=== PATIENT | male | born 1940 | race Caucasian/White ===

== ENCOUNTER 2018-08-03 09:46 | Inpatient (IN) ==
--- NOTE | 2018-07-12 09:11 | PAT Medication Instructions ---
Medication Instructions Date of Service July 12, 2018 Home Medications atorvastatin 20 mg PO HS clonazepam [Klonopin] 0.5 mg PO UD PRN gabapentin 300 mg PO BID pantoprazole 40 mg PO QAM paroxetine HCl 20 mg PO QAM ranitidine HCl 300 mg PO HS trazodone 150 mg PO HS Continue as directed clonazepam [Klonopin] 0.5 mg PO UD PRN (if needed) Take morning of surgery With a small sip of water, OTHERWISE NOTHING TO EAT OR DRINK AFTER MIDNIGHT: gabapentin 300 mg PO BID pantoprazole 40 mg PO QAM paroxetine HCl 20 mg PO QAM Take evening before surgery atorvastatin 20 mg PO HS gabapentin 300 mg PO BID ranitidine HCl 300 mg PO HS trazodone 150 mg PO HS Other Notes If you have any questions please call us at [phone] or [phone] or [phone] or [phone]
--- NOTE | 2018-07-12 13:17 | Anesthesiology Consultation ---
Date of Service July 12, 2018 Assessment & Plan (1) Encounter for pre-operative examination: - Check BSG AM DOS (elevated on preop labs; Non-fasting glucose 213 on preop labs but hgba1c 6.1%; surgeon made aware/results reviewed by PCP). PCP= 07/22/18= "medically cleared.. low risk of cardiac complications with surgery." Chart Review Chart Review: Acceptable Risk for Surgery and Patient seen in Pre Admission Testing Teaching & Discussion Pre-Anesthesia Teaching/Discussion Notes: Instructed NPO after midnight before surgery,except medications with 15 cc of water. Medication instructions provided according to the PAT guidelines. History Surgery Operation Date: 08/03/18 12:10 Proposed Procedures p Right Reverse Total Shoulder Arthroplasty - Braxton Armstrong MD Height/Weight Height: 5 ft 10.5 in Weight: 89.2 kg Allergies Allergy/AdvReac Type Severity Reaction Status Date / Time Iodinated Contrast- Oral and Allergy Unknown hives Verified 07/06/18 14:06 IV Dye clams AdvReac Unknown SEVERE Verified 07/06/18 14:06 N/V/D Medications Home Medications Medication Instructions Recorded Confirmed Last Taken atorvastatin 20 mg PO HS 07/06/18 07/06/18 Unknown clonazepam [Klonopin] 0.5 mg PO UD PRN 07/06/18 07/06/18 Unknown gabapentin 300 mg PO BID 07/06/18 07/06/18 Unknown pantoprazole 40 mg PO QAM 07/06/18 07/06/18 Unknown paroxetine HCl 20 mg PO QAM 07/06/18 07/06/18 Unknown ranitidine HCl 300 mg PO HS 07/06/18 07/06/18 Unknown trazodone 150 mg PO HS 07/06/18 07/06/18 Unknown Past Medical History Medical History Anxiety Chronic back pain Claustrophobia Deep vein thrombosis RLE (2014) POST-OP, RLE (2016) SPONTANEOUS S/P ANTICOAGULATION X 6 MONTHS (SINCE DISCONTINUED) Degenerative disc disease Depression GERD (gastroesophageal reflux disease) CONTROLLED History of skin cancer S/P MOH'S PROCEDURE Hyperlipidemia Kidney stones Osteoarthritis Spinal stenosis Past Family History Family History Uncle Family hx of colon cancer X 2 Past Surgical History Surgical History History of Mohs micrographic surgery for skin cancer History of ankle joint replacement RIGHT History of appendectomy History of back surgery LUMBAR History of bursectomy RIGHT ELBOW History of colonoscopy History of cystoscopy History of esophagogastroduodenoscopy (EGD) History of hernia repair RIGHT INGUINAL X2, LEFT X1 History of knee replacement B/L History of repair of rotator cuff B/L History of tooth extraction History of vasectomy Past Anesthesia History No Hx of Anesthesia Complications and No Family Hx of Anesthesia Complications History of PONV No Motion Sickness Screening History of Motion Sickness: No Social History Smoking Status: Former smoker Do You Dip or Chew Tobacco: No (QUIT 10 YEARS AGO) Smoking End Date: HX <1/4 PPD X 5 YEARS; QUIT 40 YEARS AGO Hx Alcohol Use: Yes Alcohol type: beer alcohol intake frequency: 0-2 drinks per day Hx Substance Use: No substance use type: does not use Exercise / Class Metabolic Activity II 4-5 Yardwork/Stairs/Walk up hill Review of Systems Patient reports LBP. Right shoulder pain with RUE radiculopathy. Patient denies chest pain, shortness of breath, dyspnea on exertion, cough, wheezing, palpitations. Physical Exam Vital Signs VITALS BP 131/67 P 58 TEMP 97.6 SP02 97%RA RESP 20 PHYSICAL Full neck and c-spine range of motion. Full TMJ range of motion. TMD 2.5 finger breaths Mallampati Score 3 Dentition: full upper dentures; partial lower dentures Lungs: clear throughout to auscultation Cardiac: regular rate and rhythm, no murmurs noted Spine: normal Carotid arteries: negative bruit Extremities: no edema Testing Electrocardiogram Date: 10/17/17 Findings: + NSR @ (70) Chest X-Ray Date: 07/12/18 Findings: + NAD Mild compression deformity of the superior endplate T12 felt to be old. Stress Test Date: 06/03/15 Type: DSE DSE "normal" without evidence of inducible ischemia. LVEF 55-60%. Grade I DD. Aortic root borderline enlarged. Mild AV sclerosis. Mild MR. Mild TR. 104% MPHR. Laboratory Results 07/12/18 13:23 07/12/18 13:23 Blood Type A Positive 07/12/18 13:23 Antibody Screen NEGATIVE 07/12/18 13:23 PT 10.3 Seconds (9.0-12.0) 07/12/18 13:23 INR 1.0 (0.9-1.1) 07/12/18 13:23 APTT 28.5 Seconds (21.0-31.0) 07/12/18 13:23 Hemoglobin A1c 6.1 % (4.5-5.6) H 07/12/18 13:23 Urine Color Yellow 07/12/18 13:23 Urine Appearance Clear (Clear) 07/12/18 13:23 Urine pH 5.5 (4.5-7.5) 07/12/18 13:23 Ur Specific [place] 1.013 (1.000-1.030) 07/12/18 13:23 Urine Protein Negative (Negative) 07/12/18 13:23 Urine Glucose (UA) Trace (Negative) H 07/12/18 13:23 Urine Ketones Negative (Negative) 07/12/18 13:23 Urine Nitrite Negative (Negative) 07/12/18 13:23 Ur Leukocyte Esterase Negative (Negative) 07/12/18 13:23 Non-fasting glucose 213 on preop labs --> hgba1c 6.1%; surgeon made aware/results forwarded to PCP.
[2018-07-12 14:29] LABS: Basophils # (auto) 0.01 K/uL (0-0.2); Basophils % (auto) 0.2 %; Eosinophils # (auto) 0.02 K/uL (0-0.5); Eosinophils % (auto) 0.4 %; Hematocrit (blood only) 40.5 % (42-52); Hemoglobin 13.8 g/dL (14.0-18.0); Lymphocytes # (auto) 1.37 K/uL (1.2-3.4); Lymphocytes % (auto) 28.1 %; Mean Corpuscular Hgb Conc 34.1 g/dL (32-36); Mean Corpuscular Volume 92.5 fL (80-100); Mean Platelet Volume 9.8 fL (7.4-10.4); Monocytes # (auto) 0.27 K/uL (0.11-0.59); Monocytes % (auto) 5.5 %; Neutrophils # (auto) 3.21 K/uL (1.4-6.5); Neutrophils % (auto) 65.8 %; Platelet Count 159 K/uL (130-400); RDW Coefficient of Variation 12.4 % (11.5-14.5); RDW Standard Deviation 41.9 fL (36.4-46.3); Red Blood Count 4.38 M/uL (4.7-6.1); White Blood Count 4.88 K/uL (4.8-10.8)
--- NOTE | 2018-07-12 14:32 | XRay Report ---
XR chest Pre-admission PA/Lat CLINICAL HISTORY: pat preoperative evaluation COMPARISON STUDY: No previous studies for comparison. FINDINGS: The bones soft tissues and hemidiaphragms are normal. The cardiomediastinal silhouette is n ormal. The lungs are clear. The pulmonary vasculature is normal. Mild compression deformity of the heart perior endplate T12 felt to be old. IMPRESSION: No acute process. The above report was generated using voice recognition software. It may contain grammatical, syntax or spelling errors. Electronically signed by: Mahesh Alan M.D. 07/12/2018 2:31 PM
[2018-07-12 14:34] LABS: Appearance Urine Clear (Clear); Bilirubin Urine Negative (Negative); Blood Urine Negative (Negative); Color Urine Yellow; Glucose Urine UA Trace (Negative); Ketones Urine Negative (Negative); Leukocyte Esterase Urine Negative (Negative); Nitrite Urine Negative (Negative); Protein Urine Negative (Negative); Specific Gravity Urine 1.013 (1.000-1.030); Urobilinogen Urine Negative (Negative); pH Urine 5.5 (4.5-7.5)
[2018-07-12 14:43] LABS: Estimated Average Glucose 128 mg/dl; Hemoglobin A1C 6.1 % (4.5-5.6)
[2018-07-12 14:44] LABS: Partial Thromboplastin Ratio 1.1; Partial Thromboplastin Time 28.5 Seconds (21.0-31.0); Prothrombin Time 10.3 Seconds (9.0-12.0)
[2018-07-12 15:04] LABS: Albumin Level 3.7 gm/dl (3.4-5.0); Calcium 8.4 mg/dl (8.5-10.1); Creatinine Clr Calc Pharmacy 84.2 ml/min; Est GFR (African American) 98.3; Est GFR (Non-African American) 84.8
--- NOTE | 2018-08-02 15:46 | History and Physical Report ---
DATE OF ADMISSION: 08/03/2018 CHIEF COMPLAINT: Chronic right shoulder pain. HISTORY OF PRESENT ILLNESS: This is a 77-year-old male patient of Dr. Armstrong'oral complaining of chronic right shoulder pain and rotator cuff arthropathy. The patient has failed conservative treatment and has elected to proceed with a right reversed total shoulder arthroplasty. PAST MEDICAL HISTORY: History of blood clot in his right leg and groin, spine problems, neck problems, upper back problems, sciatica, acid reflux, hiatal hernia, skin cancer and he has dentures. SOCIAL HISTORY: Nonsmoker, occasional drinker. PAST SURGICAL HISTORY: Right ankle replacement, both knee replacements, both shoulder surgeries, low back surgery, 3 hernia surgeries, appendectomy and removal of skin cancer from his back. REVIEW OF SYSTEMS: The patient complains of chronic right shoulder pain and weakness. Otherwise, denies any shortness of breath, chest pain, nausea, vomiting or any other joint complaints. FAMILY HISTORY: Noncontributory. MEDICATIONS: Atorvastatin 20 mg daily, clonazepam 1 tablet 3 times daily, gabapentin 300 mg 3 times daily, ketaconazole 2% shampoo twice weekly, pantoprazole 40 mg daily, paroxetine 20 mg daily, ranitidine 300 mg at bedtime, trazodone 150 mg at bedtime. ALLERGIES: IODINE. PHYSICAL EXAMINATION: GENERAL: Well-developed, well-nourished 77-year-old male in no acute distress. He is alert and oriented x3 and pleasant. HEENT: Normocephalic, atraumatic. Extraocular motions are intact. Pupils equal and reactive to light. HEART: Regular rate and rhythm, no murmurs. LUNGS: Clear. ABDOMEN: Soft, nontender, bowel sounds present. EXTREMITIES: Right shoulder reveals full active range of motion with crepitation and pain. Neurologically and neurovascularly, he is intact in his right upper extremity. External rotation strength is 3/5, internal is 4+/5. DIAGNOSES: Right shoulder rotator cuff arthropathy, history of deep venous thrombosis in the right lower leg and groin, spine problems, neck problems, upper back problems, sciatica, acid reflux, hiatal hernia, dentures and history of skin cancer. PLAN: The patient was advised of his diagnosis. Indications, risks, benefits, postop course have all been reviewed. The patient wished to proceed with a right reversed total shoulder arthroplasty. Necessary consent forms, preoperative testing and clearances will be obtained.
[~2018-08-03 09:46] MED LIST: ACETAMINOPHEN 500 MG TAB PO SCH; CEFAZOLIN 2000MG 2,000 MG/15 ML SYR IV SCH; CeleBREX 200 MG CAP PO SCH; DEXAMETHASONE SOD INJ 4 MG/ML VIAL ONE; FAMOTIDINE 20 MG TAB PO SCH; GABAPENTIN 300 MG PO SCH; LR 15ML/HR IV SCH; METOCLOPRAMIDE HCL 10 MG TABLET PO SCH; ROPIVACAINE 0.5% 5 MG/ML 30 ML VIAL ONE; dexAMETHasone 4 MG TAB PO SCH
[2018-08-03] MEDS ORDERED: MIDAZOLAM HCL 1 MG/ML 2ML VIAL ONE ×2 (10:12)
[2018-08-03] MEDS ORDERED: PROPOFOL IV EMULSION 10 MG/ML 20 ML VIAL IV ONE ×2 (10:12→13:50)
[2018-08-03] MEDS ORDERED: ROCURONIUM BROMIDE 10 MG/ML 5 ML VIAL ONE ×6 (10:12→14:52)
[2018-08-03] MEDS ORDERED: fentaNYL citrate 100 MCG/2 ML VIAL ONE (10:12)
[2018-08-03] MEDS ORDERED: ONDANSETRON INJ 2 MG/ML 2 ML VIAL ONE (10:13)
[2018-08-03] MEDS ORDERED: DEXAMETHASONE SOD INJ 4 MG/ML VIAL ONE (10:13)
--- NOTE | 2018-08-03 10:17 | History & Physical Bridge Note ---
Date of Service August 03, 2018 History & Physical Bridge Note I have examined the patient, reviewed the History & Physical and in the interval since the performance of the History & Physical I have noted the following changes of clinical significance: no changes noted
[2018-08-03] MEDS ORDERED: BACITRACIN INJ 50,000 UNIT VIAL ONE (10:55)
[2018-08-03] MEDS ORDERED: POVIDONE-IODINE OP SOLN 30 ML BTL ONE (10:55)
[2018-08-03] MEDS ORDERED: ePHEDrine sulfate 50 MG/ML AMP IV PRN (11:51)
[2018-08-03] MEDS ORDERED: ATROPINE SULFATE 0.1 MG/ML 10ML SYR IV PRN (11:51)
[2018-08-03] MEDS ORDERED: ePHEDrine sulfate 50 MG/ML SYR ONE ×2 (13:18→14:24)
[2018-08-03] MEDS ORDERED: NEOSTIGMINE METHYLSULFATE 5 MG/5 ML SYR ONE (14:53)
[2018-08-03] MEDS ORDERED: GLYCOPYRROLATE 0.2 MG/ML VIAL ONE (14:53)
--- NOTE | 2018-08-03 15:17 | Post Operative Brief Note ---
Immediate Post Op Note v1 Date of Surgery August 03, 2018 Pre & Post Diagnosis Operation Date: 08/03/18 12:30 Pre-Op Diagnosis: Right Shoulder Rotator Cuff Arthropathy, history of open rotator cuff repair failed rotator cuff repair irreparable rotator cuff tear Post-Op Diagnosis: Same, chronic retracted biceps tendon proximal rupture Procedure Operation Date: 08/03/18 12:30 Actual Procedures p Right Reverse Total Shoulder Arthroplasty(Right) - Braxton Armstrong MD Surgeon Braxton Armstrong MD Nurse Ldr [employer] BUSTILLO Estimated Blood Loss 175 Findings Consistent with Post-Op Diagnosis Specimens Humeral head Drains Hussein Catheter and Hemovac Drain Anesthesia Type General Regional Complications none Disposition Accompanied Patient To Recovery: No Disposition: Recovery Room Overlapping Procedure I was immediately available: during the entire case.
--- NOTE | 2018-08-03 15:57 | XRay Report ---
XR shoulder RT min 2V routine CLINICAL HISTORY: 77 years-old Male presenting with Post shoulder surgery. TECHNIQUE: Frontal and transcatheter Y views of the right shoulder were obtained. COMPARISON: Chest x-ray from 07/12/2018. FINDINGS: There has been interval reverse total right shoulder arthroplasty. Surgical drains and skin moi i n place. No periprosthetic fracture or malalignment. Acromioclavicular joint congruent. Mildly low red ng volumes noted. IMPRESSION: Expected postsurgical appearance status post reverse total right shoulder arthroplasty. Electronically signed by: Darius Dominguez M.D. 08/03/2018 3:55 PM
--- NOTE | 2018-08-03 16:07 | Anesthesiology Progress Note ---
Date of Service August 03, 2018 Anesthesia Post Procedure Vital Signs Vital Signs: Temp Pulse Resp BP Pulse Ox 08/03/18 15:33 36.3 C L 97 H 16 134/66 97 08/03/18 10:26 36.4 C L 56 L 17 128/72 98 Pain Intensity Right Shoulder: Pain Intensity: 0 Notes Mental Status: alert / awake / arousable Patient Amnestic to Procedure: Yes Nausea / Vomiting: adequately controlled Pain: adequately controlled Airway Patency, RR, SpO2: stable & adequate BP & HR: stable & adequate Hydration State: stable & adequate Anesthetic Complications: no major complications apparent and Pt Satisfied with anesthetic care
[2018-08-03] MEDS ORDERED: HYDROmorphone INJ 0.5 MG/0.5 ML SYR IV PRN (16:42)
[2018-08-03] MEDS ORDERED: BISACODYL 10 MG SUPP PR PRN (16:42)
[2018-08-03] MEDS ORDERED: ONDANSETRON INJ 2 MG/ML 2 ML VIAL IV PRN (16:42)
[2018-08-03] MEDS ORDERED: NALOXONE HCL 0.4 MG/1 ML VIAL/CARP IV PRN (16:42)
[2018-08-03] MEDS ORDERED: clonazePAM 0.5 MG TAB PO PRN (16:42)
[2018-08-03] MEDS ORDERED: MAGNESIUM HYDROXIDE SUSP 30 ML UDC PO PRN (16:42)
--- NOTE | 2018-08-03 17:35 | Consultation ---
Date of Consultation August 03, 2018 Assessment & Plan (1) Shoulder pain: s/p R reverse total shoulder As per ortho Pre-op Hb 13.8 (2) Depression: continue home meds (3) Anxiety: continue home meds (4) Neck pain: Gabapentin as at home (5) Hyperlipidemia: continue home meds (6) DVT prophylaxis: As per ortho Hx of DVT x2, once s/p OR and once s/p mild trauma Advised pt to ambulate frequently despite decreased overall activity while recovering from shoulder surgery History of Present Illness Attending Physician: Braxton Armstrong MD History of Present Illness 77 y/o M who was admitted on 08/03 s/p R revere total shoulder with Dr. Armstrong. Pt is doing well post-op. Tolerating water without issue but has not had an other PO yet. Pt denies fever, SOB, chest pain, abd pain, n/v/c/d, LE pain or swelling. Pt states he has hx of DVT x2. First was 2015 s/p R ankle repair. He completed a course of anticoagulation. Second was 2017 after a ladder fell on his R LE. He finished another course of anticoagulation for this. States he was tested for genetic blood clotting disorders and this was negative. Allergies Allergy/AdvReac Type Severity Reaction Status Date / Time Iodinated Contrast- Oral and Allergy Unknown hives Verified 08/03/18 10:21 IV Dye clams AdvReac Unknown SEVERE Verified 08/03/18 10:21 N/V/D Home Medications Home Medications Medication Instructions Recorded Confirmed Type atorvastatin 20 mg PO HS 07/06/18 08/03/18 History clonazepam [Klonopin] 0.5 mg PO UD PRN 07/06/18 08/03/18 History gabapentin 300 mg PO BID 07/06/18 08/03/18 History pantoprazole 40 mg PO QAM 07/06/18 08/03/18 History paroxetine HCl 20 mg PO QAM 07/06/18 08/03/18 History ranitidine HCl 300 mg PO HS 07/06/18 08/03/18 History trazodone 150 mg PO HS 07/06/18 08/03/18 History Patient History Medical History Anxiety Chronic back pain Claustrophobia Deep vein thrombosis RLE (2015) POST-OP, RLE (2017) SPONTANEOUS S/P ANTICOAGULATION X 6 MONTHS (SINCE DISCONTINUED) Degenerative disc disease Depression GERD (gastroesophageal reflux disease) CONTROLLED History of skin cancer S/P MOH'S PROCEDURE Hyperlipidemia Kidney stones Osteoarthritis Spinal stenosis Surgical History History of Mohs micrographic surgery for skin cancer History of ankle joint replacement RIGHT History of appendectomy History of back surgery LUMBAR History of bursectomy RIGHT ELBOW History of colonoscopy History of cystoscopy History of esophagogastroduodenoscopy (EGD) History of hernia repair RIGHT INGUINAL X2, LEFT X1 History of knee replacement B/L History of repair of rotator cuff B/L History of tooth extraction History of vasectomy Social History Preferred Language: American Communication Ability: Effective Storage And Backup Administrator Required: No Beliefs That Will Affect Care: None Current Living Situation: Spouse Other Information That Helps Us Care for You: No Feels Safe at Home: Yes Safety Concerns: Feels Safe At This Time Smoking Status: Former smoker Hx Alcohol Use: Yes (1-2 drinks several days a week, none for over a week) Hx Substance Use: No Review of Systems Pertinent positives and negatives reviewed in HPI--all others negative Physical Exam Vital Signs (Past 24 Hours): Last Vital Signs Temp 36.5 C 08/03/18 17:01 Pulse 80 08/03/18 17:01 Resp 18 08/03/18 17:01 BP 117/70 08/03/18 17:01 Pulse Ox 95 08/03/18 17:01 Constitutional: WD/WN, vitals as above Eyes: normal visual [place] by confrontation and + anicteric sclerae Neck: normal visual inspection and trachea midline Respiratory: normal respiratory effort, lungs clear to auscultation Cardiovascular: Rate/Rhythm: regular rate and regular rhythm Gastrointestinal (Abdomen): Inspection/Auscultation: abdomen not distended Percussion/Palpation: abdomen soft; abdomen nontender Musculoskeletal: Head/Neck/Chest: normocephalic and head atraumatic negative for edema, peripheral pulses intact Skin: no rashes, warm and dry Neurologic: awake; not confused Speech / Cognition: normal speech Psychiatric: A+Ox3, euthymic affect Results & Data Diagnostic Findings CXR: neg for acute
[2018-08-03] MEDS: SODIUM CHLORIDE 0.9% 1000ML 1,000 ML IV SCH (17:40)
--- NOTE | 2018-08-03 18:41 | Operative Report ---
Post Operative Report Pre & Post Diagnosis Operation Date: 08/03/18 12:30 Pre-Op Diagnosis: Right Shoulder Rotator Cuff Arthropathy, history of open rotator cuff repair, failed rotator cuff repair, irreparable rotator cuff tear Post-Op Diagnosis: Same, chronic retracted biceps tendon tear Procedure Operation Date: 08/03/18 12:30 Actual Procedures p Right Reverse Total Shoulder Arthroplasty(Right) - Braxton Armstrong MD Surgeon Braxton Armstrong MD Registration Specialist [employer] BUSTILLO Estimated Blood Loss 175 Findings Consistent with Post-Op Diagnosis Specimens Humeral head Drains 2 Hemovac Anesthesia Type General Regional Complications none Disposition Accompanied Patient To Recovery: No Disposition: Recovery Room Indications 77-year-old male with a chronic pain weakness right shoulder pseudo-paralytic arm. Patient is proximal migration of the humerus [id number] between the humerus and the acromion with rotator cuff arthropathy. Description of Procedure The patient was taken to the operating room and anesthetized under regional block and general anesthetic. The patient was positioned on the operating table in a 40 beach chair position with a towel roll under the medial border of the right scapula. The arm was draped free to be able to manipulate the shoulder as needed. The right upper extremity was prepped and draped in usual sterile fashion. Exam demonstrated good passive range of motion with 90 degrees of external and internal rotation and forward elevation to 160 degrees. A longitudinal scar lateral deltoid noted. An anterior deltopectoral approach was performed. A longitudinal incision was made in the deltopectoral interval. The skin was incised sharply. Subcutaneous flaps were elevated off the fascia. The cephalic vein was dissected out and retracted lateral with the deltoid. The clavipectoral fascia was divided at the lateral margin of the conjoined tendon and extended up to the CA ligament. The following findings were noted: Patient had only one third of the lower subscapularis and capsule still intact and the upper subscapularis was torn and retracted. All the tendons of the rotator cuff were torn and retracted aside from the teres minor which was still intact. There are large osteophytes about the humeral head and significant arthritic changes. There was thick chronic bursal tissue overlying the intact rotator cuff tissue. Long head of the biceps was torn and retracted not identified. The upper centimeter of the pectoralis was released for inferior exposure. The intact portion of the subscapularis tendon was taken down off the lesser tuberosity using a subperiosteal peel dissection. A #1 Vicryl traction suture was placed into the free end of the subscapularis tendon and capsule. The circumflex vessels were identified and tied off with silk ties and divided laterally. The subscapularis tendon was then taken down off of the lesser tuberosity subperiosteally and subperiosteal dissection was performed along the neck of the humerus as the arm is gradually actually rotated exposing the humeral head. Retractors were readjusted and the inferior osteophytes were all resected using an artist chisel. A Richards elevator was used to assist in releasing the capsule of the neck of the humerus. A Fukuda retractor was placed into the joint retracting the humeral head posterior. Glenoid findings demonstrated grade 3 wear and a large posterior superior osteophyte attached to the posterior capsule. The labrum was resected. an anterior-inferior and posterior inferior capsular release were performed with electrocautery and a Richards elevator on bone. Attention was then taken to the humeral preparation. The cutting guide was placed into the humeral head. It was positioned at 20 of retroversion. Oscillating saw was used to resect the humeral head giving the cut above the level of the posterior rotator cuff insertion site. The large humeral osteophytes were resected with a rongeur. The humerus was then prepared for the stem. I used the ascend flex stem from [facility]. The sizing broaches were used followed by trial broaches up to a size 7 which had the appropriate fit and fill. The appropriate sized cut protector was placed. The humerus was then retracted posterior to the glenoid. The glenoid was sized for a 42 glenoid sphere. The guide for the baseplate was positioned in a 10 inferior tilt and the central drill hole was made. The reamer for the 29 baseplate was used. The central drill was widened for the peg. The 29 baseplate was impacted into po sition. The base plate was transfixed with superior and inferior locking screws and anterior and posterior compression screws with stable fixation. The fan reamer was used for the 42 millimeter glenoid sphere. After irrigation the 42 glenoid sphere was impacted onto the baseplate and the screw was tightened. Attention was taken back to the humerus. The cut protector was removed and the +0 high offset humeral tray trial was assembled to the trial stem rotated appropriately to get bony coverage and then screwed in position. A trial reduction was performed. A +6 trial insert demonstrated good stability and no shuck. The trials were removed. 2 drill holes are made into the harder bone in the lower bicipital groove area and to #5 FiberWire sutures were placed transosseously. The canal was irrigated with antibiotic solution with bacitracin. The final component was assembled. The final component was 7B long 120 mm ascend flex humeral stem +0 high offset humeral tray 42+6 polyethylene insert. This was then impacted into the humerus with a tight press-fit. It was reduced to the glenoid sphere. Stability was verified. Subscapularis was repaired with the #5 FiberWire sutures using Mando-Adonay suture technique. Lateral row soft tissue repair was performed with #2 FiberWire [id number] sutures. The pectoralis was repaired with #2 FiberWire [id number] sutures. The arm was taken through a range of motion which demonstrated 160 degrees forward elevation 100 degrees of abduction 70 degrees external rotation. The implant was stable through the range of motion tested. The wound was copiously irrigated. 2 Hemovac drains were placed. The deltopectoral interval was closed with [id number] #1 Vicryl sutures. The subcutaneous tissues were closed with 2-0 Vicryl sutures. The skin was closed with moi. Sterile dressings were applied and a shoulder immobilizer. [employer] BUSTILLO my physician ice cream freezer assistant assisted in the procedure to the entire procedure including patient positioning arm positioning prepping and draping soft tissue retraction instrument management suture management and performed the subcutaneous and skin closure and will participate in the postoperative care of the patient. I attest to the content of the Intraoperative Record and any orders documented therein. Any exceptions are noted below.
[2018-08-03] MEDS: DOCUSATE SODIUM 100 MG CAP PO SCH (20:09)
[2018-08-03] MEDS: ASPIRIN 81 MG ECTAB PO SCH (20:09)
[2018-08-03] MEDS: GABAPENTIN 300 MG CAP PO SCH (20:10)
[2018-08-03] MEDS: ATORVASTATIN 20 MG TAB PO SCH (20:10)
[2018-08-03] MEDS: SENNA 8.6 MG TAB PO SCH (20:10)
[2018-08-03] MEDS: CEFAZOLIN 2000MG 2,000 MG/15 ML SYR IV SCH (22:45)
[2018-08-03] MEDS: TRAZODONE HCL 50 MG TAB PO SCH (22:45)
[2018-08-03] MEDS: ACETAMINOPHEN 500 MG TAB PO SCH (22:45)
[2018-08-04] MEDS ORDERED: COUGH DROP (SUGAR FREE) LOZ 24 LOZ/1 BOX BUCCAL PRN (00:30)
[2018-08-04] MEDS: SODIUM CHLORIDE 0.9% 1000ML 1,000 ML IV SCH (05:18)
[2018-08-04] MEDS: ACETAMINOPHEN 500 MG TAB PO SCH ×3 (05:19→21:35)
[2018-08-04] MEDS: CEFAZOLIN 2000MG 2,000 MG/15 ML SYR IV SCH (05:19)
[2018-08-04 06:18] LABS: Hemoglobin 11.6 g/dL (14.0-18.0); Immature Granulocytes # (auto) 0.02 K/uL (0.00-0.02); Immature Granulocytes % (auto) 0.2 %; Lymphocytes # (auto) 0.79 K/uL (1.2-3.4); Lymphocytes % (auto) 9.1 %; Mean Corpuscular Hgb Conc 34.1 g/dL (32-36); Mean Corpuscular Volume 91.4 fL (80-100); Mean Platelet Volume 9.5 fL (7.4-10.4); Monocytes % (auto) 6.9 %; Neutrophils # (auto) 7.23 K/uL (1.4-6.5); Neutrophils % (auto) 83.8 %; Platelet Count 158 K/uL (130-400); RDW Coefficient of Variation 12.7 % (11.5-14.5); RDW Standard Deviation 42.4 fL (36.4-46.3); Red Blood Count 3.72 M/uL (4.7-6.1); White Blood Count 8.64 K/uL (4.8-10.8)
[2018-08-04 06:54] LABS: BUN Creatinine Ratio 12.5 (10-20); Calcium 7.8 mg/dl (8.5-10.1); Creatinine Clr Calc Pharmacy 74.9 ml/min; Est GFR (African American) 97.4; Potassium 3.6 mmol/L (3.5-5.1)
--- NOTE | 2018-08-04 08:38 | Anesthesiology Progress Note ---
Date of Service August 04, 2018 Anesthesia Post Procedure Vital Signs Vital Signs: Temp Pulse Pulse Pulse Resp BP BP 08/04/18 07:00 36.5 C 66 18 113/66 08/04/18 02:57 36.4 C L 66 16 105/60 08/03/18 23:11 36.5 C 68 16 111/66 08/03/18 21:38 08/03/18 19:30 36.5 C 103 H 18 148/71 H 08/03/18 18:36 36.5 C 96 H 18 112/65 08/03/18 17:33 36.5 C 74 18 119/71 08/03/18 17:01 36.5 C 80 18 117/70 08/03/18 16:30 36.6 C 79 18 117/61 08/03/18 16:15 75 16 123/69 08/03/18 16:11 78 17 129/70 08/03/18 16:10 36.5 C 76 74 16 129/70 08/03/18 16:05 77 16 107/76 08/03/18 16:00 77 77 17 120/80 120/80 08/03/18 15:55 79 20 134/73 08/03/18 15:51 85 21 137/67 08/03/18 15:50 85 85 22 137/67 08/03/18 15:46 86 18 143/64 H 08/03/18 15:45 88 28 H 08/03/18 15:41 93 H 17 125/74 08/03/18 15:40 92 H 93 H 18 125/74 08/03/18 15:36 97 H 14 122/70 08/03/18 15:35 97 H 24 08/03/18 15:34 99 H 17 134/66 08/03/18 15:33 36.3 C L 97 H 97 H 21 134/66 08/03/18 10:26 36.4 C L 56 L 17 128/72 Pulse Ox 08/04/18 07:00 94 08/04/18 02:57 94 08/03/18 23:11 95 08/03/18 21:38 95 08/03/18 19:30 98 08/03/18 18:36 99 08/03/18 17:33 98 08/03/18 17:01 95 08/03/18 16:30 97 08/03/18 16:15 97 08/03/18 16:11 97 08/03/18 16:10 97 08/03/18 16:05 97 08/03/18 16:00 96 08/03/18 15:55 99 08/03/18 15:51 98 08/03/18 15:50 97 08/03/18 15:46 99 08/03/18 15:45 99 08/03/18 15:41 99 08/03/18 15:40 100 08/03/18 15:36 98 08/03/18 15:35 98 08/03/18 15:34 98 08/03/18 15:33 96 08/03/18 10:26 98 Pain Intensity Right Shoulder: Pain Intensity: 0 Notes Mental Status: alert / awake / arousable and participated in evaluation Patient Amnestic to Procedure: Yes Nausea / Vomiting: adequately controlled Pain: adequately controlled Airway Patency, RR, SpO2: stable & adequate BP & HR: stable & adequate Hydration State: stable & adequate Anesthetic Complications: no major complications apparent and Pt Satisfied with anesthetic care
[2018-08-04] MEDS: OXYCODONE HCL IR 5 MG TAB (IMMEDIATE RELEASE) PO PRN ×3 (08:49→21:38)
[2018-08-04] MEDS: PANTOprazole 40 MG TAB PO SCH (08:49)
[2018-08-04] MEDS: MULTIVITAMIN TAB PO SCH (08:49)
[2018-08-04] MEDS: PARoxetine HCl 20 MG TAB PO SCH (08:50)
[2018-08-04] MEDS: GABAPENTIN 300 MG CAP PO SCH ×2 (08:50→21:32)
[2018-08-04] MEDS: DOCUSATE SODIUM 100 MG CAP PO SCH ×2 (08:50→21:33)
[2018-08-04] MEDS: ASPIRIN 81 MG ECTAB PO SCH ×2 (08:50→21:33)
--- NOTE | 2018-08-04 10:11 | Orthopedic Progress Note ---
Date of Service August 04, 2018 Assessment & Plan (1) Shoulder pain: POD #1, Right reversed TSA PT/ OT D/C planning- Home As per medicine. Subjective POD #1, Doing well, denies sob, cp, n/v, pain controlled well. Physical Exam Vital Signs (Past 24 Hours): Last Vital Signs Temp 36.5 C 08/04/18 07:00 Pulse 66 08/04/18 07:00 Resp 18 08/04/18 07:00 BP 113/66 08/04/18 07:00 Pulse Ox 94 08/04/18 07:00 Physical Exam: Right shoulder dressings c/d/i, no drainage, sling/ drain in tact, fingers mobile, A&Ox3.
[2018-08-04] MEDS: SENNA 8.6 MG TAB PO SCH (21:33)
[2018-08-04] MEDS: TRAZODONE HCL 50 MG TAB PO SCH (21:34)
[2018-08-04] MEDS: ATORVASTATIN 20 MG TAB PO SCH (21:35)
[2018-08-05] MEDS: ACETAMINOPHEN 500 MG TAB PO SCH (05:40)
--- NOTE | 2018-08-05 08:00 | Orthopedic Progress Note ---
Date of Service August 05, 2018 Assessment & Plan (1) Shoulder pain: POD #2, Right reversed TSA PT/ OT D/C planning- Home today w HEP As per medicine. Subjective POD #2, Doing well, denies sob, cp, n/v, pain controlled well. Physical Exam Vital Signs (Past 24 Hours): Last Vital Signs Temp 36.7 C 08/05/18 07:00 Pulse 74 08/05/18 07:00 Resp 18 08/05/18 07:00 BP 116/69 08/05/18 07:00 Pulse Ox 96 08/05/18 07:00 Physical Exam: Right shoulder dressings c/d/i, no drainage, fingers mobile, sling in tact. A&Ox3
[2018-08-05] MEDS: MULTIVITAMIN TAB PO SCH (08:39)
[2018-08-05] MEDS: PANTOprazole 40 MG TAB PO SCH (08:39)
[2018-08-05] MEDS: GABAPENTIN 300 MG CAP PO SCH (08:39)
[2018-08-05] MEDS: DOCUSATE SODIUM 100 MG CAP PO SCH (08:40)
[2018-08-05] MEDS: PARoxetine HCl 20 MG TAB PO SCH (08:40)
[2018-08-05] MEDS: ASPIRIN 81 MG ECTAB PO SCH (09:15)
--- NOTE | 2018-08-09 03:09 | Discharge Summary ---
DISCHARGE DIAGNOSES: Right shoulder rotator cuff arthropathy with history of open rotator cuff repair, failed rotator cuff repair, irreparable cuff repair. SECONDARY DIAGNOSES: History of deep venous thrombosis in the right lower extremity in the past, degenerative spine disease, sciatica, gastroesophageal reflux disease, skin carcinoma. CONSULTATIONS: Yanna Mariano MD COMPLICATIONS: None. PROCEDURES: Right reverse total shoulder arthroplasty by Dr. Armstrong on 08/03/2018. BRIEF HISTORY: As dictated in the history and physical. HOSPITAL SUMMARY: The patient was admitted on the above-noted date and had the above-noted surgery performed, which he tolerated well. On the first postoperative day, he was doing well and had no complaints. Pain was controlled. Vital signs were stable and the patient was afebrile. Dressings were clean, dry, and intact. No drainage. Sling was intact. Fingers were mobile. The patient was started on PT and OT protocols and was continued on pain management. By his second postoperative day, he continued to progress well, had no complaints. Pain was controlled. Vital signs were stable. He was afebrile. Dressings were intact. Fingers were mobile. Sling was intact. It was felt he could be discharged to home on 08/05/2018. For further review, please see chart. LABORATORY AND X-RAY DATA: As per chart. DISCHARGE INSTRUCTIONS: The patient was discharged home in satisfactory condition on 08/05/2018. DIET: Regular. ACTIVITY: The patient to be nonweightbearing on the affected upper extremity. Follow reverse total shoulder arthroplasty instructions and special care instructions as noted. Follow up with Dr. Armstrong in 2 weeks. The patient to call for appointment if one has not been made for you. DISCHARGE MEDICATIONS: Acetaminophen 1000 mg p.o. q. 8 hours, aspirin 81 mg p.o. b.i.d., oxycodone 5 mg p.o. q. 6 hours. Resume home meds as listed.
== END 2018-08-05 10:47 | disposition home or self-care (01) | DRG 483 ==
LOC: ASU 09:46 → 3E 15:47

== ENCOUNTER 2018-12-12 10:03 | Inpatient (IN) ==
[2018-11-21 13:48] LABS: Basophils # (auto) 0.01 K/uL (0-0.2); Basophils % (auto) 0.2 %; Eosinophils # (auto) 0.02 K/uL (0-0.5); Eosinophils % (auto) 0.4 %; Hematocrit (blood only) 38.9 % (42-52); Hemoglobin 13.1 g/dL (14.0-18.0); Immature Granulocytes # (auto) 0.01 K/uL (0.00-0.02); Immature Granulocytes % (auto) 0.2 %; Lymphocytes # (auto) 1.42 K/uL (1.2-3.4); Lymphocytes % (auto) 28.2 %; Mean Corpuscular Hgb Conc 33.7 g/dL (32-36); Mean Corpuscular Volume 92.4 fL (80-100); Mean Platelet Volume 9.3 fL (7.4-10.4); Monocytes # (auto) 0.38 K/uL (0.11-0.59); Monocytes % (auto) 7.5 %; Neutrophils % (auto) 63.5 %; Platelet Count 175 K/uL (130-400); RDW Coefficient of Variation 13.1 % (11.5-14.5); RDW Standard Deviation 43.8 fL (36.4-46.3); Red Blood Count 4.21 M/uL (4.7-6.1); White Blood Count 5.04 K/uL (4.8-10.8)
[2018-11-21 13:50] LABS: Appearance Urine Clear (Clear); Bilirubin Urine Negative (Negative); Blood Urine Negative (Negative); Color Urine Yellow; Glucose Urine UA Negative (Negative); Ketones Urine Negative (Negative); Leukocyte Esterase Urine Negative (Negative); Nitrite Urine Negative (Negative); Protein Urine Negative (Negative); Specific Gravity Urine 1.022 (1.000-1.030); Urobilinogen Urine Negative (Negative)
[2018-11-21 14:04] LABS: Estimated Average Glucose 131 mg/dl; Hemoglobin A1C 6.2 % (4.5-5.6)
[2018-11-21 14:06] LABS: Prothrombin Time 10.3 Seconds (9.0-12.0)
[2018-11-21 14:28] LABS: Albumin Level 3.4 gm/dl (3.4-5.0); BUN Creatinine Ratio 18.1 (10-20); Blood Urea Nitrogen 17 mg/dl (7-18); C Reactive Protein < 0.29 mg/dl (0-0.29); Calcium 8.5 mg/dl (8.5-10.1); Carbon Dioxide 30 mmol/L (21-32); Chloride 105 mmol/L (98-107); Est GFR (African American) 89.8; Est GFR (Non-African American) 77.4; Glucose 76 mg/dl (70-99); Potassium 4.2 mmol/L (3.5-5.1); Sodium 139 mmol/L (136-145)
[2018-11-21 14:29] LABS: Phosphorus 2.9 mg/dl (2.5-4.9)
--- NOTE | 2018-12-06 09:53 | Anesthesiology Consultation ---
Date of Service December 06, 2018 Assessment & Plan (1) Encounter for pre-operative examination: Chart Review Chart Review: Acceptable Risk for Surgery and Patient NOT seen in Pre Admission Testing History Surgery Operation Date: 12/12/18 10:20 Proposed Procedures p Right Shoulder Poly Exchange, Possible Humeral Tray Exchange, S/P Reversed Shoulder Arthroplasty - Braxton Armstrong MD Height/Weight Height: 5 ft 10.5 in Weight: 83.915 kg Allergies Allergy/AdvReac Type Severity Reaction Status Date / Time Iodinated Contrast- Oral and Allergy Unknown hives Verified 11/10/18 08:16 IV Dye clams AdvReac Unknown SEVERE Verified 11/10/18 08:16 N/V/D Medications Home Medications Medication Instructions Recorded Confirmed Last Taken atorvastatin 20 mg PO HS 07/06/18 11/10/18 08/02/18 22:00 clonazepam [Klonopin] 0.5 mg PO UD PRN 07/06/18 11/10/18 Unknown pantoprazole 40 mg PO QAM 07/06/18 11/10/18 08/03/18 07:00 paroxetine HCl 20 mg PO QAM 07/06/18 11/10/18 08/03/18 07:00 trazodone 150 mg PO HS 07/06/18 11/10/18 08/02/18 22:00 multivitamin 1 tab PO DAILY 11/10/18 11/10/18 Unknown ranitidine HCl 150 mg PO HS 11/10/18 11/10/18 Unknown Past Medical History Medical History Anxiety Chronic back pain Claustrophobia Deep vein thrombosis RLE (2014) POST-OP, RLE (2016) SPONTANEOUS S/P ANTICOAGULATION X 6 MONTHS (SINCE DISCONTINUED) Degenerative disc disease Depression GERD (gastroesophageal reflux disease) CONTROLLED History of skin cancer S/P MOH'S PROCEDURE Hyperlipidemia Kidney stones Osteoarthritis Spinal stenosis Past Family History Family History Uncle Family hx of colon cancer X 2 Father Coronary heart disease [place] Brother Coronary heart disease [place] Family/Other Clotting disorder nephew with genetic clotting disorder Past Surgical History Surgical History History of Mohs micrographic surgery for skin cancer History of ankle joint replacement RIGHT History of appendectomy History of back surgery LUMBAR History of bursectomy RIGHT ELBOW History of colonoscopy History of cystoscopy History of esophagogastroduodenoscopy (EGD) History of hernia repair RIGHT INGUINAL X2, LEFT X1 History of knee replacement B/L History of repair of rotator cuff B/L History of tooth extraction History of total shoulder replacement Right reverse total shoulder arthroplasty: 08/03/18: Grade 2 view with cricoid pressure to improve view, MAC#3, ETT 8.0 ("easy, atraumatic, poor neck e xtension") History of vasectomy Social History Smoking Status: Former smoker tobacco type: cigarettes Do You Dip or Chew Tobacco: No (QUIT 2008) Smoking End Date: QUIT 1978 Hx Alcohol Use: Yes Alcohol type: beer alcohol intake frequency: a few times a week Hx Substance Use: No substance use type: does not use Testing Laboratory Results 11/21/18 12:44 11/21/18 12:44 PT 10.3 Seconds (9.0-12.0) 11/21/18 12:44 INR 1.0 (0.9-1.1) 11/21/18 12:44 Hemoglobin A1c 6.2 % (4.5-5.6) H 11/21/18 12:44 Urine Color Yellow 11/21/18 12:44 Urine Appearance Clear (Clear) 11/21/18 12:44 Urine pH 7.0 (4.5-7.5) 11/21/18 12:44 Ur Specific [place] 1.022 (1.000-1.030) 11/21/18 12:44 Urine Protein Negative (Negative) 11/21/18 12:44 Urine Glucose (UA) Negative (Negative) 11/21/18 12:44 Urine Ketones Negative (Negative) 11/21/18 12:44 Urine Nitrite Negative (Negative) 11/21/18 12:44 Ur Leukocyte Esterase Negative (Negative) 11/21/18 12:44 Blood Type A Positive 11/21/18 12:44 Antibody Screen NEGATIVE 11/21/18 12:44 Electrocardiogram Date: 12/01/18 Findings: + SB @ (56) Chest X-Ray Date: 07/12/18 Findings: + NAD Mild compression deformity of the superior endplate T12 felt to be old. Stress Test Date: 06/03/15 Type: DSE DSE "normal" without evidence of inducible ischemia. LVEF 55-60%. Grade I DD. Aortic root borderline enlarged. Mild AV sclerosis. Mild MR. Mild TR. 104% MPHR.
--- NOTE | 2018-12-10 16:47 | History and Physical Report ---
DATE OF ADMISSION: 12/12/2018 CHIEF COMPLAINT: Chronic right shoulder pain. HISTORY OF PRESENT ILLNESS: This is a 78-year-old male patient of Dr. Armstrong'oral complaining of chronic and continued right shoulder pain status post a reverse total shoulder arthroplasty in 07/2018. The patient describes subluxation and instability along with pain which continues 4 months postoperatively. The patient has been diagnosed with unstable reverse total shoulder arthroplasty and wishes to proceed with a right shoulder poly exchange, possible humeral tray exchange status post reverse total shoulder arthroplasty. PAST MEDICAL HISTORY: Hypercholesterolemia, anxiety, peripheral neuropathy, history of blood clots, osteoarthritis, spine problems, neck problems, upper back problems, sciatica, acid reflux, hiatal hernia, kidney stones, melanoma cancer. SOCIAL HISTORY: Nonsmoker, nondrinker. PAST SURGICAL HISTORY: Shoulder replacement, ankle replacement, bilateral knee replacement, hernia surgery and appendectomy. FAMILY HISTORY: Noncontributory. REVIEW OF SYSTEMS: Chronic right shoulder pain status post reverse total shoulder arthroplasty in 07/2018. Otherwise, denies any shortness of breath, chest pain, nausea, vomiting or any other joint complaints. MEDICATIONS: 1. Zocor 20 mg daily. 2. Protonix 40 mg daily. 3. Tramadol 50 mg every 6 hours as needed. 4. Paroxetine 20 mg daily. 5. Ranitidine 300 mg daily. 6. Klonopin 1 mg daily. 7. Trazodone 150 mg daily. ALLERGIES: IODINE WHICH CAUSES HIVES. PHYSICAL EXAMINATION: GENERAL: Well-developed, well-nourished 78-year-old male in no acute distress. He is alert and oriented x3 and pleasant. HEENT: Normocephalic, atraumatic. Extraocular motions are intact. Pupils are equal and reactive to light. HEART: Regular rate and rhythm, no murmurs appreciated. LUNGS: Clear. ABDOMEN: Soft, nontender, bowel sounds present. EXTREMITIES: Right shoulder, he is currently not dislocated at this point in time. His range of motion of 0-170 with pain. He has had some isometric strength again with pain. Neurologically and neurovascularly he is intact in his right upper extremity. DIAGNOSES: Right shoulder chronic instability and subluxation status post reverse total shoulder arthroplasty. He has a history of hypercholesterolemia, anxiety, peripheral neuropathy, blood clot, osteoarthritis, spine problems, neck problems, upper back problems, sciatica, acid reflux, hiatal hernia, kidney stones and melanoma cancer. PLAN: The patient was advised of his diagnosis. Indications, risks, benefits, postop course have all been reviewed. The patient wished to proceed with a right reversed total shoulder arthroplasty revision poly exchange, possible humeral tray exchange. Necessary consent forms, preoperative testing and clearances will be obtained.
[~2018-12-12 10:03] MED LIST changes: -DEXAMETHASONE SOD INJ 4 MG/ML VIAL ONE; +GABAPENTIN 300 MG CAP PO SCH; -GABAPENTIN 300 MG PO SCH; +VANCOMYCIN HCL 1,250 MG in SODIUM CHLORIDE 0.9% 250 ML IV SCH
[2018-12-12] MEDS ORDERED: MIDAZOLAM HCL 1 MG/ML 2ML VIAL ONE (10:46)
[2018-12-12] MEDS ORDERED: fentaNYL citrate 100 MCG/2 ML VIAL ONE ×2 (10:46→14:12)
--- NOTE | 2018-12-12 10:51 | History & Physical Bridge Note ---
Date of Service December 12, 2018 History & Physical Bridge Note I have examined the patient, reviewed the History & Physical and in the interval since the performance of the History & Physical I have noted the following changes of clinical significance: no changes noted
[2018-12-12] MEDS ORDERED: BACITRACIN INJ 50,000 UNIT VIAL ONE ×2 (11:02→15:11)
[2018-12-12] MEDS ORDERED: ONDANSETRON INJ 2 MG/ML 2 ML VIAL IV PRN ×2 (11:51→17:00)
[2018-12-12] MEDS ORDERED: ATROPINE SULFATE 0.1 MG/ML 10ML SYR IV PRN (11:51)
[2018-12-12] MEDS ORDERED: ePHEDrine sulfate 50 MG/ML AMP IV PRN (11:51)
[2018-12-12] MEDS ORDERED: fentaNYL citrate 100 MCG/2 ML VIAL IV PRN (11:51)
--- NOTE | 2018-12-12 15:39 | Post Operative Brief Note ---
Immediate Post Op Note v1 Date of Surgery December 12, 2018 Pre & Post Diagnosis Operation Date: 12/12/18 12:50 Pre-Op Diagnosis: instability S/P Reversed Shoulder Arthroplasty Post-Op Diagnosis: instability S/P Reversed Shoulder Arthroplasty, attenuation subscapularis repair Procedure Operation Date: 12/12/18 12:50 Actual Procedures p Right Shoulder Poly Exchange, Humeral Tray Exchange(Right) - Braxton Armstrong MD Surgeon Braxton Armstrong MD [employer] [place] Estimated Blood Loss 75 Findings Consistent with Post-Op Diagnosis Drains Hemovac Drain Anesthesia Type General Regional Complications none Disposition Accompanied Patient To Recovery: No Disposition: Recovery Room Overlapping Procedure I was immediately available: during the entire case.
[2018-12-12] MEDS ORDERED: LIDOCAINE HCL 2% 2 ML VIAL/AMP(20MG/ML) INFIL ONE (16:06)
[2018-12-12] MEDS ORDERED: SUCCINYLCHOLINE CHLORIDE 20 MG/ML 10 ML VIAL ONE (16:06)
[2018-12-12] MEDS ORDERED: ONDANSETRON INJ 2 MG/ML 2 ML VIAL ONE (16:06)
[2018-12-12] MEDS ORDERED: PHENYLEPHRINE HCL 10 MG/ML VIAL ONE (16:06)
[2018-12-12] MEDS ORDERED: NEOSTIGMINE METHYLSULFATE 5 MG/5 ML SYR ONE (16:06)
[2018-12-12] MEDS ORDERED: ROCURONIUM BROMIDE 10 MG/ML 5 ML VIAL ONE (16:06)
[2018-12-12] MEDS ORDERED: ePHEDrine sulfate 50 MG/ML AMP ONE (16:06)
[2018-12-12] MEDS ORDERED: PROPOFOL IV EMULSION 10 MG/ML 20 ML VIAL IV ONE (16:06)
[2018-12-12] MEDS ORDERED: GLYCOPYRROLATE 0.2 MG/ML VIAL ONE (16:06)
[2018-12-12] MEDS ORDERED: DEXAMETHASONE SOD INJ 4 MG/ML VIAL ONE (16:06)
--- NOTE | 2018-12-12 16:37 | Anesthesiology Progress Note ---
Date of Service December 12, 2018 Anesthesia Post Procedure Vital Signs Vital Signs: Temp Pulse Pulse Resp BP Pulse Ox 12/12/18 16:30 74 18 131/76 95 12/12/18 16:20 77 22 128/66 95 12/12/18 16:10 80 17 122/65 98 12/12/18 16:01 36.2 C L 86 16 134/60 95 12/12/18 10:43 36.5 C 73 20 134/68 95 Pain Intensity Right Shoulder: Pain Intensity: 0 Transfer of Care Handoff Completed per policy Notes Mental Status: alert / awake / arousable and participated in evaluation Patient Amnestic to Procedure: Yes Nausea / Vomiting: adequately controlled Pain: adequately controlled Airway Patency, RR, SpO2: stable & adequate BP & HR: stable & adequate Hydration State: stable & adequate Anesthetic Complications: no major complications apparent and Pt Satisfied with anesthetic care
--- NOTE | 2018-12-12 16:38 | XRay Report ---
XR shoulder RT min 2V routine CLINICAL HISTORY: Post shoulder surgery shoulder arthroplasty COMPARISON: 08/03/2018 DISCUSSION: Anatomic alignment posttotal right shoulder arthroplasty. Good contact between prosthetic and underlying bone. Expected soft tissue postoperative change IMPRESSION: Anatomic alignment posttotal right shoulder arthroplasty. The above report was generated using voice recognition software. It may contain grammatical, syntax or spelling errors. Electronically signed by: Mahesh Alan M.D. 12/12/2018 4:37 PM
[2018-12-12] MEDS ORDERED: SODIUM CHLORIDE 0.9% 1000ML 1,000 ML IV SCH (17:00)
[2018-12-12] MEDS ORDERED: clonazePAM 0.5 MG TAB PO PRN (17:00)
[2018-12-12] MEDS ORDERED: MAGNESIUM HYDROXIDE SUSP 30 ML UDC PO PRN (17:00)
[2018-12-12] MEDS ORDERED: BISACODYL 10 MG SUPP PR PRN (17:00)
[2018-12-12] MEDS ORDERED: NALOXONE HCL 0.4 MG/1 ML VIAL/CARP IV PRN (17:00)
[2018-12-12] MEDS ORDERED: HYDROmorphone INJ 0.5 MG/0.5 ML SYR IV PRN (17:00)
--- NOTE | 2018-12-12 17:59 | Hospitalist Consultation ---
Date of Consultation December 12, 2018 Assessment & Plan (1) H/O total shoulder replacement: - POD#0 right shoulder poly exchange and humeral tray exchange (had right TSA 07/2018) - activity and wound care orders as per ortho - pain control with bowel regimen - PT/OT - monitor H/H for acute blood loss anemia and transfuse blood products PRN - EBL 75 cc (2) Hyperlipidemia: -Continue statin (3) GERD (gastroesophageal reflux disease): -Continue PPI and H2 mary (4) Anxiety: -Continue paroxetine (5) DVT prophylaxis: -Aspirin 81 mg daily and TEDs/SCDs as per orthopedics Thank you for this consultation. We will follow the patient with you during their hospital stay. You can reach a [facility] via pager @ [phone]. Supervising Physician Co-Signing Physician Notes I have seen and examined the patient and have discussed the case with the provider above. I agree with the assessment and plan as stated. Hemodynamically stable. Benign exam. Cont current treatment plan. Appreciate the consult. DO Kole History of Present Illness Reason for Consultation: Postop medical management Requesting Physician: Dr. Armstrong Attending Physician: Dr. Sharif History of Present Illness 78-year-old male who is status post right shoulder poly exchange and humeral tray exchange. Patient underwent a right total shoulder arthroplasty 07/2018 and has had continued and persistent pain and therefore presented for the planned procedure today. Probably, the patient is doing well. Reports pain is well controlled. No numbness or tingling to the right upper extremity. He denies chest pain shortness of breath. No lightheadedness or dizziness. He denies abdominal pain or nausea. He has not voided since surgery. Allergies Allergy/AdvReac Type Severity Reaction Status Date / Time Iodinated Contrast- Oral and Allergy Intermediate hives Verified 12/12/18 11:13 IV Dye clams AdvReac Severe SEVERE Verified 12/12/18 11:13 N/V/D Home Medications Home Medications Medication Instructions Recorded Confirmed Type atorvastatin 20 mg PO HS 07/06/18 12/12/18 History clonazepam [Klonopin] 0.5 mg PO UD PRN 07/06/18 12/12/18 History pantoprazole 40 mg PO QAM 07/06/18 12/12/18 History paroxetine HCl 20 mg PO QAM 07/06/18 12/12/18 History trazodone 150 mg PO HS 07/06/18 12/12/18 History multivitamin 1 tab PO DAILY 11/10/18 12/12/18 History ranitidine HCl 150 mg PO HS 11/10/18 12/12/18 History acetaminophen [Tylenol Extra 1,000 mg PO Q8 30 Days #180 tab 12/13/18 Rx Strength] aspirin [Ecotrin Low Strength] 81 mg PO QAM 30 Days #30 tab 12/13/18 Rx oxycodone 5 mg PO Q4H PRN #30 tab 12/13/18 Rx Patient History Medical History Skin cancer (melanoma) (Chronic) History of DVT (deep vein thrombosis) (Chronic) GERD (gastroesophageal reflux disease) (Chronic) Hyperlipidemia (Chronic) Anxiety (Chronic) Surgical History H/O total shoulder replacement (Chronic) Right History of appendectomy (Chronic) H/O hernia repair (Chronic) x 2 History of total left knee replacement (Chronic) History of total right knee replacement (Chronic) S/P ankle joint replacement (Chronic) History of Mohs micrographic surgery for skin cancer Family History Uncle Family hx of colon cancer X 2 Father Coronary heart disease [place] Brother Coronary heart disease [place] Family/Other Clotting disorder nephew with genetic clotting disorder Social History Preferred Language: Upper Sorbian Communication Ability: Effective Director Of Adult Epilepsy Required: No Beliefs That Will Affect Care: None marital status: Current Living Situation: Spouse Feels Safe at Home: Yes Smoking Status: Former smoker Tobacco Type: cigarettes ; Second Hand Exposure: No ; Hx Alcohol Use: Yes Alcohol type: beer Hx Substance Use: No Review of Systems Review of Systems: ROS per HPI, all other systems reviewed and negative Physical Exam Constitutional: WD/WN, vitals as above Eyes: PERRL, conjunctivae normal, anicteric sclerae ENMT: external ear and nose normal, oropharynx normal Respiratory: normal respiratory effort, lungs clear to auscultation Cardiovascular: Rate/Rhythm: regular rate and regular rhythm Vessels: normal peripheral pulses Extremities: no edema Gastrointestinal (Abdomen): normal bowel sounds, soft, nontender, no hepatosplenomegaly Musculoskeletal: S/P right shoulder surgery, surgical dressing dry and intact, drain in place draining bloody drainage, CSM checks intact right upper extremity Skin: no rashes, warm and dry Neurologic: PERRL, EOMI, accommodation nl, no face palsy, no dysarthria Psychiatric: A+Ox3, euthymic affect Results & Data Vital Signs (Past 12 Hours) Vital Signs Temp Pulse Pulse Resp BP Pulse Ox 12/12/18 17:00 36.6 C 80 18 124/69 97 12/12/18 16:45 73 12 131/68 94 12/12/18 16:40 36.6 C 73 12 121/71 96 12/12/18 16:30 74 18 131/76 95 12/12/18 16:20 77 22 128/66 95 12/12/18 16:10 80 17 122/65 98 12/12/18 16:01 36.2 C L 86 16 134/60 95 12/12/18 10:43 36.5 C 73 20 134/68 95
--- NOTE | 2018-12-12 20:45 | Operative Report ---
DATE OF OPERATION: 12/12/2018 INDICATION FOR PROCEDURE: The patient is a 78-year-old male who is status post a recent right reverse total shoulder replacement on 08/03/2018. He developed some postoperative instability where he felt the shoulder was popping out of place. He had to shift his arm to replace it in position. He never had a true dislocation that had to be reduced and more of subluxations. He had some improvement over time with therapy but continues to have some feeling of instability in the shoulder. Radiographs demonstrate a well-aligned reverse total shoulder replacement of his right shoulder. PREOPERATIVE DIAGNOSIS: Instability status post reverse total shoulder arthroplasty. POSTOPERATIVE DIAGNOSES: Instability status post reverse total shoulder arthroplasty including attenuation of subscapularis repair. PROCEDURE: Right shoulder polyethylene exchange and humeral tray exchange for instability, right reverse total shoulder replacement. SURGEON: Braxton Armstrong MD PRODUCTION BORING MACHINE OPERATOR: KENY Holden. ANESTHESIA: General with regional block. ESTIMATED BLOOD LOSS: 75 mL. DRAINS: Hemovac. COMPLICATIONS: None. DISPOSITION: Recovery room. OVERLAPPING PROCEDURE: None. OPERATIVE PROCEDURE: The patient was taken to the operating room, anesthetized under general anesthetic with muscle relaxation. Shoulder exam demonstrated he did have some shuck in his shoulder about 5 mm. Only certain positions could this be reproduced. Shoulder was stable otherwise to exam and I could not create any dislocation. His right shoulder was benign. No signs of infection, no swelling, benign healed scar. He had good range of motion, 150 degrees of forward elevation, 90 degrees of abduction, external rotation to 45-50 degrees. His right shoulder was then positioned on the operating room table in a 30 degree beachchair position with towel roll under the medial border of right scapula. He was translated to the right side bed, so his shoulder could be manipulated off the bed as necessary. His lower extremities well padded. SCDs were placed. His head was placed on a foam headrest and protective eyewear. Head was secured with tape and then his right shoulder was sterilely prepped and draped in usual sterile fashion. His previous anterior deltopectoral scar was used. Skin was incised sharply. Subcutaneous flaps were elevated and the patient's cephalic vein was still intact. This was dissected out and retracted laterally with the deltoid. Pectoralis was retracted medially. The clavipectoral fascia was identified and scarred down, typical postop findings. The conjoined tendon was identified, retracted medially and then the thin subscapularis tendon tissue was identified. There was a thin tissue in the rotator interval more just synovial tissue and the subscapularis tendon itself was attenuated and stretched out. The sutures were still intact and the repaired portion of the subscapularis was still intact to the lesser tuberosity area of the anterior humerus, although the tissue then had clearly tendinopathy. There was still infraspinatus intact, supraspinatus chronically torn. The rotator interval was opened up and then carried down as L-type incision through the bicipital groove down along the anterior humerus. A subperiosteal peel release performed to expose the humerus. We just released the upper aspect of the closure, the upper subscapularis and along the inferior neck of the humerus, left to clearly expose the entire baseplate and polyethylene. The humerus was dislocated with traction and lateral translation of the prosthetic and was able to dislocate it fairly easily. The polyethylene was removed with polyethylene removal device. The joint had some clear joint fluid, but no signs of any purulence at the site of infection and complete benign appearance to it. There was a thin membrane underneath the polyethylene which was cleaned out of the baseplate. We did the baseplate paced previously at 6 o'clock position so that was in the maximum best rotated position for stability and then tried a 9 mm poly. There was still some small amount of shuck. I felt we could improve stability better by going thicker, so this required doing and exchange of the metallic baseplate component. The baseplate was removed with a tuning fork device easily and the Phelps taper was this large. The stem was clearly stable and intact with good bone ingrowth. The humeral glenoid sphere was clearly stable and intact. No false motion. The small membrane over the humeral component was removed and we copiously irrigated out the glenohumeral joint with 3 liters of antibiotic solution with bacitracin. Then, we did a baseplate trial with a +6 mm high offset tray baseplate and then went ahead with a 9 x 42 reversed polyethylene insert and this gave no shuck through full range of motion and patient had good stable range of motion of shoulder and I felt the soft tissue tension on the deltoid and conjoined tendon was better. The trials were removed. Then, the humerus was prepared for the final component with further irrigation and drying of the Phelps taper of the stem completely and then impacting the +6 high offset tray with the high offset superior and then the 42 x 9 reversed polyethylene insert for Tornier Ascend Flex stem was placed in position and impacted with a good fit. We reduced the prosthetic to the glenoid sphere and verified stability, full range of motion and no shuck in any plane. Then after further irrigation, we went ahead and repaired the thin attenuated subscapularis tendon tissue with transosseous #5 FiberWire sutures using Mando-Adonay suture technique. This gave a little additional support, but tissue was poor and we could not depend on the tissue plane stability. After further irrigation, the 2 Hemovac drains were placed. Then the deltopectoral interval was closed with [id number] #1 Vicryl sutures and then subcutaneous tissue was closed with interrupted 2-0 Vicryl sutures. Skin was closed with moi. Sterile dressings were applied and the patient tolerated the procedure well. KENY Holden was my first helper. He functioned as first helper for the entire procedure. He assisted in soft tissue retraction, assisted in arm positioning, instrument management and assisted in the subcutaneous skin closure and will participate in postoperative care of the patient. I attest to the content of the Intraoperative Record and any orders documented therein. Any exceptions are noted below. TULIO
[2018-12-12] MEDS ORDERED: ATORVASTATIN 20 MG TAB PO SCH (21:00)
[2018-12-12] MEDS ORDERED: SENNA 8.6 MG TAB PO SCH (21:00)
[2018-12-12] MEDS ORDERED: TRAZODONE HCL 50 MG TAB PO SCH (21:00)
[2018-12-12] MEDS: DOCUSATE SODIUM 100 MG CAP PO SCH (21:53)
[2018-12-12] MEDS: CEFAZOLIN 2000MG 2,000 MG/15 ML SYR IV SCH (21:53)
[2018-12-12] MEDS: ACETAMINOPHEN 500 MG TAB PO SCH (21:53)
[2018-12-13] MEDS: ACETAMINOPHEN 500 MG TAB PO SCH ×2 (05:36→13:57)
[2018-12-13] MEDS: CEFAZOLIN 2000MG 2,000 MG/15 ML SYR IV SCH (05:36)
[2018-12-13 05:56] LABS: Hematocrit (blood only) 35.3 % (42-52); Immature Granulocytes # (auto) 0.01 K/uL (0.00-0.02); Immature Granulocytes % (auto) 0.2 %; Lymphocytes # (auto) 0.99 K/uL (1.2-3.4); Lymphocytes % (auto) 15.4 %; Mean Corpuscular Volume 88.9 fL (80-100); Mean Platelet Volume 8.9 fL (7.4-10.4); Monocytes # (auto) 0.38 K/uL (0.11-0.59); Monocytes % (auto) 5.9 %; Neutrophils # (auto) 5.03 K/uL (1.4-6.5); Neutrophils % (auto) 78.5 %; Platelet Count 162 K/uL (130-400); RDW Coefficient of Variation 13.3 % (11.5-14.5); RDW Standard Deviation 42.7 fL (36.4-46.3); Red Blood Count 3.97 M/uL (4.7-6.1); White Blood Count 6.41 K/uL (4.8-10.8)
[2018-12-13 06:29] LABS: Calcium 8.1 mg/dl (8.5-10.1); Creatinine Clr Calc Pharmacy 72.9 ml/min; Est GFR (African American) 96.3; Est GFR (Non-African American) 83.1; Potassium 3.8 mmol/L (3.5-5.1)
[2018-12-13] MEDS: OXYCODONE HCL IR 5 MG TAB (IMMEDIATE RELEASE) PO PRN ×3 (08:03→14:00)
[2018-12-13] MEDS: DOCUSATE SODIUM 100 MG CAP PO SCH (08:04)
--- NOTE | 2018-12-13 08:17 | Anesthesiology Progress Note ---
Date of Service December 13, 2018 Anesthesia Post Procedure Vital Signs Vital Signs: Temp Pulse Pulse Resp BP Pulse Ox 12/13/18 07:15 36.5 C 55 L 18 125/67 95 12/13/18 02:57 36.3 C L 65 16 110/65 92 12/12/18 23:28 36.6 C 71 18 117/67 94 12/12/18 20:14 36.5 C 89 17 112/65 94 12/12/18 18:58 36.5 C 88 17 108/67 95 12/12/18 18:04 36.8 C 88 17 134/73 95 12/12/18 17:00 36.6 C 80 18 124/69 97 12/12/18 16:45 73 12 131/68 94 12/12/18 16:40 36.6 C 73 12 121/71 96 12/12/18 16:30 74 18 131/76 95 12/12/18 16:20 77 22 128/66 95 12/12/18 16:10 80 17 122/65 98 12/12/18 16:01 36.2 C L 86 16 134/60 95 12/12/18 10:43 36.5 C 73 20 134/68 95 Pain Intensity Right Shoulder: Pain Intensity: 2 Notes Mental Status: alert / awake / arousable and participated in evaluation Patient Amnestic to Procedure: Yes Nausea / Vomiting: adequately controlled Pain: adequately controlled Airway Patency, RR, SpO2: stable & adequate BP & HR: stable & adequate Hydration State: stable & adequate Anesthetic Complications: no major complications apparent and Pt Satisfied with anesthetic care
--- NOTE | 2018-12-13 08:40 | Orthopedic Progress Note ---
Date of Service December 13, 2018 Assessment & Plan (1) H/O total shoulder replacement: POD #1, Right shoulder revision reversed tsa with poly and humeral tray exchange Limited PT/ OT DVT proph- ASA D/C planning- Home today Appreciate medicine input. Subjective POD #1, Doing well, No c/o's Denies SOB, CP, N/V. Pain is controlled well. Physical Exam Physical Exam: Right shoulder dressings/ drain c/d/i, no drainage. Fingers mobile. Sling intact. A&Ox3. Results & Data Vital Signs (Past 12 Hours) Vital Signs Temp Pulse Resp BP Pulse Ox 12/13/18 07:15 36.5 C 55 L 18 125/67 95 12/13/18 02:57 36.3 C L 65 16 110/65 92 12/12/18 23:28 36.6 C 71 18 117/67 94
[2018-12-13] MEDS ORDERED: ASPIRIN 81 MG ECTAB PO SCH (09:00)
[2018-12-13] MEDS ORDERED: MULTIVITAMIN TAB PO SCH (09:00)
[2018-12-13] MEDS ORDERED: PANTOprazole 40 MG TAB PO SCH (09:00)
[2018-12-13] MEDS ORDERED: PARoxetine HCl 20 MG TAB PO SCH (09:00)
--- NOTE | 2018-12-13 09:03 | Hospitalist Progress Note ---
Date of Service December 13, 2018 Assessment & Plan (1) H/O total shoulder replacement: POD#1 right shoulder poly exchange and humeral tray exchange (had right TSA 07/2018) tolerated procedure well EBL 75cc; drain output 105ml pain/wound management per ortho minimal therapy per ortho incentive spirometry bowel regimen activity and wound care orders as per ortho H/H stable at 12.0 and 35.3 (pre op 13.1 and 38.9) (2) Hyperlipidemia: Continue statin (3) GERD (gastroesophageal reflux disease): Continue PPI and H2 mary (4) Anxiety: Continue paroxetine and trazodone mood stable (5) DVT prophylaxis: Aspirin 81 mg daily and TEDs/SCDs as per orthopedics Disposition: D/C to home today as per orthopedics Patient was seen and examined in collaboration with Dr. Burnette, please see addendum Thank you for this consultation. We will follow the patient with you during their hospital stay. You can reach a member of the [facility] Team 16/11 via pager @ [phone]. Supervising Physician Co-Signing Physician Notes I have seen and examined the patient with physician photo studio assistant and agree with the assessment and plans as above and would like to comment that at this time, On exam: General: no acute distres Lungs: clear to auscultation bilaterally Chest: regular rate and rhythm Right shoulder; in sling with wound vac abdomen: soft, nontender, positive bowel sounds lower Extremities: no edema the main diagnosis are: PREOPERATIVE DIAGNOSIS: Instability status post reverse total shoulder arthroplasty POSTOPERATIVE DIAGNOSES: Instability status post reverse total shoulder arthroplasty including attenuation of subscapularis repair. patient continues to have a wound vac to the left shoulder with serosanguinous drainage. Orthopedics have discharge orders placed for the patient. The patient expects that the wound vac be removed before he goes home For when is is discharged I have arranged primary care doctor appointment for the patient Primary Care appointment made for 12/20/2018 1:00 PM Provider Chrystal Winkler DO Department [facility] and discussed with patient and wrote down the appointment information for him Patient denies chest pain or dizziness or shortness of breath or headache or lightheadedness. blood counts generally stable Medicine service will sign off if orthopedic discharging the patient today Discharge Instructions as per orthopedic service Subjective Patient was seen and examined in room 311. Follow-up POD #1 right TSA revision poly and humeral tray exchange. Patient is being discharged later this afternoon and he offers no concerns or complaints. He does complain of 4/10 pain and recently took analgesia. Denies fever, chills, sweats, lightheadedness, dizziness, chest pain, shortness of breath, nausea, vomiting, abdominal pain. Passing minimal flatus. Urinating without difficulty. Very good appetite. Review of Systems Review of Systems: As noted per HPI, 10 systems reviewed and negative unless noted above. Physical Exam Physical Exam: Gen: WD/WN,Male, sitting up in bed, NAD, A&O x3 HEENT: Normocephalic, atraumatic, conjunctivae moist, sclerae anicteric, mucous membranes moist. Lung: Clear to Auscultation bilaterally, no wheezes/rales/rhonchi Heart: Regular rate, regular rhythm, no murmurs, rubs, or gallops Abdomen: Soft, NT, ND +BS x 4 Extremities: No edema, RUE prox dressing CDI, hemovac in place, NVI distally Skin: Warm, no rash, negative turgor. Results & Data Vital Signs (Past 12 Hours) Vital Signs Temp Pulse Resp BP Pulse Ox 12/13/18 07:15 36.5 C 55 L 18 125/67 95 12/13/18 02:57 36.3 C L 65 16 110/65 92 12/12/18 23:28 36.6 C 71 18 117/67 94 Laboratory Results Short CBC 11/21/18 12/13/18 12/13/18 Range/Units 12:44 05:47 05:47 WBC 6.41 (4.8-10.8) K/uL Hgb 12.0 L (14.0-18.0) g/dL Hct 35.3 L (42-52) % Plt Count 162 (130-400) K/uL Calcium 8.5 8.1 L (8.5-10.1) mg/dl BMP 12/13/18 05:47 Sodium 139 Potassium 3.8 Chloride 106 Carbon Dioxide 28 BUN 11 Creatinine 0.89 Glucose 112 H Calcium 8.1 L Medications Administered Acetaminophen (Tylenol) 1,000 mg PO Q8 [facility] Stop: 01/11/19 21:59 Last Admin: 12/13/18 05:36 Dose: 1,000 mg Documented by: [id number] Admin: 12/12/18 21:53 Dose: 1,000 mg Documented by: [id number] Aspirin (Ecotrin Ectab) 81 mg PO [facility] Stop: 01/12/19 08:59 Last Admin: 12/13/18 08:04 Dose: 81 mg Documented by: [id number] Atorvastatin Calcium (Lipitor) 20 mg PO [facility] Stop: 01/11/19 20:59 Last Admin: 12/12/18 21:53 Dose: 20 mg Documented by: [id number] Docusate Sodium (Colace) 100 mg PO BID [facility] Stop: 01/11/19 20:59 Last Admin: 12/13/18 08:04 Dose: 100 mg Documented by: [id number] Admin: 12/12/18 21:53 Dose: 100 mg Documented by: [id number] Multivitamins (Multivitamin Tab) 1 tab PO [facility] Stop: 01/12/19 08:59 Last Admin: 12/13/18 08:04 Dose: 1 tab Documented by: [id number] Oxycodone HCl (Roxicodone Immediate Rel) 5 - 10 mg PO Q4H PRN PRN Reason: Pain Stop: 12/26/18 16:59 Last Admin: 12/13/18 08:03 Dose: 5 mg Documented by: [id number] Pantoprazole Sodium (Protonix) 40 mg PO [facility] Stop: 01/12/19 08:59 Last Admin: 12/13/18 08:04 Dose: 40 mg Documented by: [id number] Paroxetine HCl (Paxil) 20 mg PO [facility] Stop: 01/12/19 08:59 Last Admin: 12/13/18 08:04 Dose: 20 mg Documented by: [id number] Ranitidine HCl (Zantac) 150 mg PO [facility] Stop: 01/11/19 20:59 Last Admin: 12/12/18 21:53 Dose: 150 mg Documented by: [id number] Sennosides (Senokot) 17.2 mg PO [facility] Stop: 01/11/19 20:59 Last Admin: 12/12/18 21:53 Dose: 17.2 mg Documented by: [id number] Trazodone HCl (Desyrel) 150 mg PO [facility] Stop: 01/11/19 20:59 Last Admin: 12/12/18 21:54 Dose: 150 mg Documented by: [id number] Discontinued Medications Acetaminophen (Tylenol) 1,000 mg PO PREOP [facility] Stop: 12/12/18 18:00 Last Admin: 12/12/18 11:21 Dose: 1,000 mg Documented by: [id number] Bacitracin (Bacitracin) Confirm Administered Dose 50,000 units .ROUTE .STK-MED ONE Stop: 12/12/18 11:03 Last Admin: 12/12/18 14:22 Dose: 50,000 units Documented by: [id number] Bacitracin (Bacitracin) Confirm Administered Dose 50,000 units .ROUTE .STK-MED ONE Stop: 12/12/18 15:12 Last Admin: 12/12/18 15:28 Dose: 50,000 units Documented by: [id number] Celecoxib (Celebrex) 200 mg PO PREOP [facility] Stop: 12/12/18 18:00 Last Admin: 12/12/18 11:22 Dose: 200 mg Documented by: [id number] Dexamethasone (Decadron) 8 mg PO PREOP [facility] Stop: 12/12/18 18:00 Last Admin: 12/12/18 11:22 Dose: 8 mg Documented by: [id number] Famotidine (Pepcid) 20 mg PO PREOP [facility] Stop: 12/12/18 18:00 Last Admin: 12/12/18 11:21 Dose: 20 mg Documented by: [id number] Gabapentin (Neurontin) 300 mg PO PREOP [facility] Stop: 12/12/18 18:00 Last Admin: 12/12/18 11:22 Dose: 300 mg Documented by: [id number] Lactated Ringer's (Lr) 1,000 mls @ 15 mls/hr IV .Q24H [facility] Stop: 12/13/18 05:59 Last Infusion: 12/12/18 13:32 Dose: 0 mls/hr Documented by: [id number] Admin: 12/12/18 11:00 Dose: 15 mls/hr Documented by: [id number] Cefazolin Sodium (Ancef 2000mg) 2,000 mg in 15 mls @ 3.75 mls/min IV PREOP [facility] Stop: 12/12/18 18:00 Last Admin: 12/12/18 13:32 Dose: 3.75 mls/min Documented by: [id number] Vancomycin HCl 1,250 mg/ (Sodium Chloride) 275 mls @ 250 mls/hr IV PREOP [facility] Stop: 12/13/18 05:59 Last Infusion: 12/12/18 17:46 Dose: 0 mls/hr Documented by: [id number] Admin: 12/12/18 11:08 Dose: 250 mls/hr Documented by: [id number] Cefazolin Sodium (Ancef 2000mg) 2,000 mg in 15 mls @ 3.75 mls/min IV Q8H [facility]; Protocol Stop: 12/13/18 05:03 Last Admin: 12/13/18 05:36 Dose: 3.75 mls/min Documented by: [id number] Admin: 12/12/18 21:53 Dose: 3.75 mls/min Documented by: [id number] Sodium Chloride (Nss 1000ml) 1,000 mls @ 100 mls/hr IV .Q10H [facility] Stop: 12/13/18 06:00 Last Infusion: 12/13/18 02:55 Dose: 0 mls/hr Documented by: [id number] Admin: 12/12/18 17:33 Dose: 100 mls/hr Documented by: [id number] Metoclopramide HCl (Reglan) 10 mg PO PREOP [facility] Stop: 12/12/18 18:00 Last Admin: 12/12/18 11:21 Dose: 10 mg Documented by: [id number]
--- NOTE | 2018-12-14 08:28 | Discharge Summary ---
DISCHARGE DIAGNOSES: Instability, status post reverse total shoulder arthroplasty including attenuation of subscapularis repair, right shoulder. SECONDARY DIAGNOSES: Hypercholesterolemia, anxiety, peripheral neuropathy, history of deep venous thrombosis in the past, osteoarthritis, degenerative spine problems, sciatica, gastroesophageal reflux disease, hiatal hernia, renal calculi, melanoma in the past. CONSULTS: MICHELL Steen COMPLICATIONS: None. PROCEDURES: Right shoulder polyethylene exchange and humeral tray exchange for instability, right reverse total shoulder replacement by Dr. Armstrong on 12/12/2018. BRIEF HISTORY: As dictated in the history and physical. HOSPITAL SUMMARY: The patient was admitted on the above-noted date and had the above-noted surgery performed, which he tolerated well. [facility] service was consulted for medical management during his stay. On his first postoperative stay, he was doing well without complaints. Denied shortness of breath, chest pain, nausea, vomiting. Pain was controlled. Dressings were intact. Drain was functioning with minimal drainage. Fingers were mobile. Sling was intact. He is alert and oriented x3. Vital signs were stable. He was afebrile. He was started on PT, OT and continued on DVT prophylaxis and pain management. He was remaining medically stable as well as orthopedically stable and it was felt he could be discharged to home on 12/13/2018. For further review, please see chart. LABORATORY AND X-RAY DATA: As per chart. DISCHARGE INSTRUCTIONS: The patient was discharged to home in satisfactory condition on 12/13/2018. Diet: Regular. Activity: Follow reverse total shoulder arthroplasty instructions including no physical therapy at this time. Follow up with Dr. Armstrong in 2 weeks. The patient is to call for appointment if one has not been made for you. DISCHARGE MEDICATIONS: Acetaminophen 1000 mg p.o. q. 8 hours, aspirin 81 mg p.o. q.a.m., oxycodone 5 mg p.o. q. 4 hours p.r.n. Resume home meds as listed.
== END 2018-12-13 17:48 | disposition home or self-care (01) | DRG 483 ==
LOC: ASU 10:03 → 3E 16:08